=== PATIENT | female | born 1995 | race Hispanic/Latino ===

== ENCOUNTER 2017-07-05 08:52 | Emergency (ER) | payer OTHER ==
[2017-07-05 08:58] VITALS: BMI 24.6
[2017-07-05 09:27] VITALS: O2SAT 99
[2017-07-05] MEDS ORDERED: Sodium Chloride 0.9% 1,000 ML IV STA ×2 (09:31→11:59)
[2017-07-05 10:26] LABS: EOS # 0.1 K/uL (0.0-0.7); EOS % 3.1 % (0.0-4.0); HEMATOCRIT 34.7 % (34.0-47.0); LYMPH # 1.7 K/uL (1.0-4.3); LYMPH % 36.4 % (20.0-40.0); MEAN CELL VOLUME 86.9 fl (81.0-99.0); MEAN CORPUSCULAR HEMOGLOBIN 29.1 pg (27.0-31.0); MEAN CORPUSCULAR HGB CONC 33.5 g/dL (33.0-37.0); MEAN PLATELET VOLUME 8.3 fl (7.2-11.7); MONO # 0.4 K/uL (0.0-0.8); MONO % 8.8 % (0.0-10.0); NEUT # 2.4 K/uL (1.8-7.0); NEUT % 50.7 % (50.0-75.0); NRBC % 0.2 % (0.0-0.0); RED CELL DISTRIBUTION WIDTH 14.2 % (11.5-14.5); WHITE BLOOD COUNT 4.7 K/uL (4.8-10.8)
[2017-07-05 10:40] LABS: ALB/GLOB RATIO 1.4 (1.0-2.1); BILIRUBIN,TOTAL 0.4 mg/dl (0.2-1.3); CALCIUM 8.8 mg/dL (8.4-10.2); CARBON DIOXIDE 23 mmol/L (22-30); GLUCOSE,RANDOM 93 mg/dL (65-105); TOTAL PROTEIN 6.5 G/DL (6.3-8.2)
[2017-07-05 10:42] LABS: RBC URINE 2 /hpf (0-3); URINE BACTERIA RARE (<OCC); URINE BILIRUBIN NEGATIVE (NEGATIVE); URINE BLOOD NEGATIVE (NEGATIVE); URINE COLOR YELLOW (YELLOW); URINE GLUCOSE (UA) NEG (Normal); URINE KETONE NEGATIVE (NEGATIVE); URINE LEUKOCYTE ESTERASE SMALL Leu/uL (Negative); URINE PROTEIN 30 mg/dL (NEGATIVE); URINE UROBILINOGEN 0.2-1.0 mg/dL (0.2-1.0); WBC URINE 6 /hpf (0-5)
[2017-07-05 10:45] LABS: ALKALINE PHOSPHATASE 55 U/L (38-126); ALT/SGPT 38 U/L (9-52); AST/SGOT 43 U/L (14-36); BLOOD UREA NITROGEN 16 mg/dl (7-17); CHLORIDE 107 mmol/L (98-107); POTASSIUM 4.5 MMOL/L (3.6-5.0); SODIUM 138 mmol/l (132-148)
[2017-07-05 10:52] LABS: GFR AFRICAN-AMERICAN > 60
[2017-07-05 10:54] LABS: PARTIAL THROMBOPLASTIN TIME 22.2 Seconds (25.6-37.1)
--- NOTE | 2017-07-05 11:23 | ED PDOC ---
Syncope/Near Syncope/Dizziness Time Seen by Provider: 07/05/17 09:03 Chief Complaint (Nursing): Syncope Chief Complaint (Provider): I passed out History Per: Patient, Other (friend) History/Exam Limitations: no limitations Onset/Duration Of Symptoms: Sudden Onset Current Symptoms Are (Timing): Better Activity At Onset Of Symptoms: Standing Associated Symptoms Preceding Syncopal Episode: Lightheadedness Possible Causative Factor(s): Lightheaded W/Standing, New Medications Fall Associated With With Symptoms: No Additional Complaint(s): 22yo female presents from [facility] where she was in organic chem lab watching powerpoint on screen, became lightheaded, sweaty, sat on ground and had approx 10min period of decreased responsiveness, vomited x1, friend states was pale, diaphoretic and poorly responsie. No witnessed seizure activity. History significant for recently started candesartan 4mg daily for migrane prophylaxis. Also takes penicillin daily for ongoing rheumatic disease for which she has followed w ID and cardiology for regular echos- no issues per patient. Denies chest pain, SOB, menorrhagia or diarrhea, BRBPR or melena. Past Medical History Reviewed: Historical Data, Nursing Documentation, Vital Signs Vital Signs: Last Vital Signs Temp 98.2 F 07/05/17 09:22 Pulse 62 07/05/17 09:22 Resp 16 07/05/17 09:22 BP 98/70 L 07/05/17 09:22 Pulse Ox 99 07/05/17 09:22 - Medical History PMH: Migraine Other PMH: rheumatic fever - Surgical History Surgical History: No Surg Hx - Family History Family History: States: Unknown Family Hx - Living Arrangements Living Arrangements: Other (college) - Social History Current smoker - smoking cessation education provided: No Alcohol: None - Allergies Allergies/Adverse Reactions: Allergies Allergy/AdvReac Type Severity Reaction Status Date / Time ciprofloxacin Allergy ANAPHYLAXIS Verified 07/05/17 09:22 levofloxacin [From Levaquin] Allergy RASH Verified 07/05/17 09:22 Review of Systems ROS Statement: Except As Marked, All Systems Reviewed And Found Negative Constitutional: Negative for: Fever, Chills, Malaise Cardiovascular: Negative for: Chest Pain, Palpitations Respiratory: Negative for: Cough, Shortness of Breath Gastrointestinal: Positive for: Vomiting. Negative for: Nausea, Abdominal Pain Genitourinary Female: Negative for: Dysuria, Frequency Musculoskeletal: Negative for: Neck Pain, Shoulder Pain, Back Pain Skin: Negative for: Rash, Lesions Neurological: Positive for: Dizziness. Negative for: Weakness, Numbness, Confusion, Seizures, Altered Mental Status, Headache Physical Exam - Reviewed Nursing Documentation Reviewed: Yes Vital Signs Reviewed: Yes - Physical Exam Appears: Positive for: Well, Non-toxic, No Acute Distress Head Exam: Positive for: ATRAUMATIC, NORMAL INSPECTION, NORMOCEPHALIC Skin: Positive for: Normal Color, Warm, DRY Eye Exam: Positive for: EOMI, Normal appearance, PERRL ENT: Positive for: Normal ENT Inspection Neck: Positive for: Normal, Painless ROM Cardiovascular/Chest: Positive for: Regular Rate, Rhythm. Negative for: Tachycardia, Irregularly Irregular Respiratory: Positive for: Normal Breath Sounds. Negative for: Respiratory Distress Gastrointestinal/Abdominal: Positive for: Bowel Sounds, Soft. Negative for: Tenderness, Guarding Back: Positive for: Normal Inspection Extremity: Positive for: Normal ROM Neurologic/Psych: Positive for: Alert, Oriented - Laboratory Results Result Diagrams: 07/05/17 10:17 07/05/17 10:17 - ECG ECG: Positive for: Interpreted By Me ECG Rhythm: Positive for: Sinus Rhythm, Nonspecific Changes Rate: 63 O2 Sat by Pulse Oximetry: 99 Pulse Ox Interpretation: Normal Medical Decision Making Medical Decision Making: workup for syncope initiated preg confirmed neg EKG performed and interpreted by me as sinus arrthymia at 63bpm, with nonspecific changes, QTc 454, QRS 88 labs obtained, mild anemia trop neg trace elev CK Patient states she ran 15 miles this weekend preparing for marathon in Aug. She has a wrist HR monitor which showed tachycardic response during event to HR approx 120 then quickly resolved to 60s. States her normal HR is in low 60s. IVF bolus performed, BP and HR monitored BP improved and orthostatics checked, no orthostasis present Mom arrived in ED, wants to take home to her private yard goods salesperson in [place]. Maintenance And Engineering Manager called [phone], awaiting return call. Offered hospital obs but prefer to followup outpt as patient feels better, Ambulated without symptoms. Told to hold migrane prophylaxis as likely caused episode hypotension. Hydrate adequately. Has neuro and cardio followup Avoid athletic training until she sees cardio/neuro. addendum- discussed w her yard goods salesperson in [place] later in afternoon, agreed w plan and will followup patient. Disposition - Clinical Impression Clinical Impression: Syncope - Patient ED Disposition Is Patient to be Admitted: No Counseled Patient/Family Regarding: Studies Performed, Diagnosis, Need For Followup - Disposition Disposition: Routine/Home Disposition Time: 13:43 Condition: STABLE Additional Instructions: See your yard goods salesperson and neurologist as soon as possible. Dont take your migrane medication for now, as it may have caused your blood pressure to drop. Return to any ER for any new or return symptoms. Avoid athletic activity until cleared by yard goods salesperson. Instructions: Syncope (ED) Forms: [employer] (Pashto)
[2017-07-05 11:25] VITALS: PULSE 63
[2017-07-05 14:28] VITALS: BP 118/70; RESP 17; TEMP 98.1
--- NOTE | 2017-07-06 11:56 | CARD ---
APPROVED REPORT EKG Measurement Heart [id number] <Conclusion> Normal sinus rhythm with sinus arrhythmia Normal ECG
== END 2017-07-05 13:44 | disposition home or self-care (01) ==
LOC: H.ER 08:52
DX: R55 Syncope and collapse (principal)
CPT/HCPCS: 80053; 81003; 81025; 82550; 82948; 83880; 84484; 85025; 85610; 85730; 93005; 99285; J7040